=== PATIENT | male | born 1990 | race Caucasian/White ===

== ENCOUNTER → 2017-08-02 | Outpatient (CLI) | payer BC | LOC: COL.RAD 11:57 | DX: N50.811 Right testicular pain (principal) ==

== ENCOUNTER 2019-01-16 09:53 | Emergency (ER) | payer OTHER ==
[~2019-01-16] VITALS: Ht 170.2 cm; Wt 93.2 kg
[2019-01-16 11:30] VITALS: BP 132/83; PULSE 72; TEMP 97.1
== END 2019-01-16 11:30 | disposition home or self-care (01) ==
LOC: COL.ER 09:53
DX: S60.211A Contusion of right wrist, initial encounter (principal); W22.8XXA Striking against or struck by other objects, initial encounter; Y92.009 Unspecified place in unspecified non-institutional (private) residence as the place of occurrence of the external cause